=== PATIENT | male | born 1945 | race Caucasian/White ===

== ENCOUNTER → 2017-10-06 | Outpatient (CLI) | payer OTHER ==
[~2017-10-06] MED LIST: BACTRIM DS TAB1 EACH PO; KEFLEX500 M1 PO; METFORMIN HCL500 MG PO; ZOCOR20 MG PO
== END ==
LOC: M.MRI 12:48
DX: M79.641 Pain in right hand (principal)

== ENCOUNTER → 2020-11-10 | Outpatient (CLI) | payer OTHER ==
[~2020-11-10] MED LIST changes: +GLUCOPHAGE1000 MG PO; +NAPROSYN500 MG PO; +STIOLTO RESPIMAT4 GM INH; +VITAMIN D325 MC3 PO
[2020-11-10 10:24] LABS: HEMATOCRIT 42.5 % (42.0-52.0); HEMOGLOBIN 14.3 gm/dL (14.0-18.0); MCH 30.5 pg (26.0-34.0); MCHC 33.7 g/dL (28.0-37.0); MCV 90.5 fL (80.0-100.0); MPV 8.3 fl. (7.2-11.1); RBC 4.7 mil/uL (4.50-6.00); RDW-CV 13.8 % (10.5-14.5)
[2020-11-10 10:31] LABS: CALCIUM 8.9 mg/dL (8.5-10.1); CREATININE 1.2 mg/dL (0.6-1.3); POTASSIUM 4.4 mmol/L (3.5-5.1)
--- NOTE | 2020-11-10 13:22 | EKG ---
[place] [address] ELECTROCARDIOGRAM REPORT Name: MADELINE CARABALLO Room: [facility]#: [id number] Admission: 11/10/20 Attend Phys: Mohsen Hubbard DO Discharge: Date of : 49 Date of Service: 11/10/20 1040 Report #: [id number] THIS REPORT FOR: //name// [facility] Test Date: 2020-11-10 Test Time: 10:40:27 Pat Name: MADELINE CARABALLO Department: Room: Gender: Former Hand: : 1945 Requested By: Mohsen Hubbard Order Number: [id number] Reading MD: Anderson Lora Measurements Intervals [place] Rate: 62 P: 60 AL: 156 QRS: -52 QRSD: 135 T: 5 QT: 436 QTc: 443 Interpretive Statements Sinus rhythm with sinus arrhythmia Atrial premature complex RBBB and LAFB Baseline wander in lead(s) II,III,aVR,aVL,aVF,V1 No previous ECG available for comparison Electronically Signed On 11-10-2020 13:22:37 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
== END ==
LOC: M.LAB 09:31
PROVIDERS: ATTEND Surgery
DX: Z01.812 Encounter for preprocedural laboratory examination (principal); Z20.822 Contact with and (suspected) exposure to COVID-19; K44.9 Diaphragmatic hernia without obstruction or gangrene; I49.9 Cardiac arrhythmia, unspecified

== ENCOUNTER → 2021-02-24 | Outpatient (CLI) | payer OTHER ==
[2021-02-24 15:57] VITALS: BP 170/105
== END ==
LOC: M.INT 10:30
PROVIDERS: ATTEND Internal Medicine
DX: I70.202 Unspecified atherosclerosis of native arteries of extremities, left leg (principal); E78.00 Pure hypercholesterolemia, unspecified; F17.210 Nicotine dependence, cigarettes, uncomplicated; Z79.899 Other long term (current) drug therapy

== ENCOUNTER → 2021-03-02 | Outpatient (CLI) | payer OTHER ==
[~2021-03-02] MED LIST changes: +GLIPIZIDE5 MG PO; +NEURONTIN100 MG PO; +PROAIR HFA8.5 GM INH
== END ==
LOC: M.LAB 09:47 → M.CT 11:00
PROVIDERS: ATTEND Radiology Diagnostic Radiology
DX: I70.202 Unspecified atherosclerosis of native arteries of extremities, left leg (principal)